=== PATIENT | female | born 2000 | race Caucasian/White ===

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

== ENCOUNTER 2021-11-15 11:46 | Emergency (ER) | payer BC, OTHER ==
[2021-11-15 12:30] VITALS: PULSE 98; TEMP 99
[2021-11-15 12:51] LABS: Appearance,Urine Clear (Clear); Bilirubin,Urine Negative (Negative); Blood,Urine Negative (Negative); Color,Urine Yellow; Glucose,Urine (UA) Negative (Negative); Ketones,Urine Trace (Negative); Leukocyte Esterase,Urine Negative (Negative); Nitrite,Urine Negative (Negative); Protein,Urine Negative (Negative); Specific Gravity,Urine 1.022 (1.001-1.035); Urobilinogen,Urine <2.0 mg/dL (<2.0)
[2021-11-15 14:02] VITALS: BP 119/79; RESP 12
--- NOTE | 2021-11-15 15:26 | US ---
EXAMINATION TYPE: US transvaginal DATE OF EXAM: 11/15/2021 COMPARISON: NONE CLINICAL HISTORY: abd pain. Pain. Patient had IUD placed in February 2021. G0. TECHNIQUE: Transvaginal (TV). Date of LMP: February 2021, pt had IUD placed that month. EXAM MEASUREMENTS: Uterus: 6.4 x 3.8 x 2.4 cm Endometrial Stripe: 0.34 cm Right Ovary: 3.6 x 2.6 x 2.3 cm Left Ovary: 3.7 x 2.7 x 2.3 cm 1. Uterus: Anteverted IUD appears to be in upper endometrium. Anechoic, fluid-appearing area in ce rvix: 1.6 x 0.2 x 0.1 cm. Hyperechoic focus seen: 0.2 x 0.1 x 0.2, which may be a nonspecific calcifi cation 2. Endometrium: Measures 0.34 cm. 3. Right Ovary: Follicles/septated anechoic areas seen. 4. Left Ovary: Follicles/septated anechoic areas seen. Echogenic area visualized measurin.0 x 0. 6 x 0.8, which may represent normal ovarian tissue Spectral, color and waveform doppler imaging shows arterial and venous flow within the ovaries. 5. Bilateral Adnexa: Free fluid seen in right adnexa: 0.8 x 2.1 x 0.7 cm. 6. Posterior cul-de-sac: Appears wnl IMPRESSION: 1. No evidence of ovarian torsion. 2. Intrauterine device is present and appears in satisfactory position. 3. Nonspecific trace fluid within the endocervical canal and within the right pelvis.
--- NOTE | 2021-11-15 15:53 | ED ---
Abdominal Pain HPI - General Chief Complaint: Abdominal Pain Stated Complaint: Abd pain Time Seen by Provider: 11/15/21 12:30 Source: patient Mode of arrival: ambulatory Limitations: no limitations - History of Present Illness Initial Comments: 21-year-old female with no past medical history presents emergency department for nausea and abdominal pain. States that she woke this morning with lower pelvic pain on the left and right lower quadrants. She took some Tylenol at home with some improvement in her symptoms. Pain was so severe that it caused her to be nauseated. Denies vomiting. Denies dysuria, hematuria or did the voiding. Denies any abnormal vaginal discharge or concern for sexually transmitted infection. Does have an intrauterine device. Had some mild spotting 2 days ago. Reports that she has not had a menstrual cycle since before the IUD was placed. No melanic stools or hematochezia. Does admit to 2 episodes of loose stools. No fevers. No other alleviating, precipitating or modifying factors - Related Data Home Medications Medication Instructions Recorded Confirmed Levonorgestrel [Kyleena (IUD)] 1 implant VAGINAL [id number] 11/15/21 11/15/21 Allergies Allergy/AdvReac Type Severity Reaction Status Date / Time No Known Allergies Allergy Verified 11/15/21 14:13 Review of Systems ROS Statement: Those systems with pertinent positive or pertinent negative responses have been documented in the HPI. ROS Other: All systems not noted in ROS Statement are negative. Past Medical History Past Medical History: No Reported History History of Any Multi-Drug Resistant Organisms: None Reported Past Surgical History: No Surgical Hx Reported Past Psychological History: No Psychological Hx Reported Smoking Status: Never smoker Past Alcohol Use History: None Reported Past Drug Use History: None Reported General Exam Limitations: no limitations General appearance: alert, in no apparent distress Head exam: Present: atraumatic, normocephalic, normal inspection Eye exam: Present: normal appearance, PERRL, EOMI. Absent: scleral icterus, conjunctival injection, periorbital swelling ENT exam: Present: normal exam, mucous membranes moist Neck exam: Present: normal inspection. Absent: tenderness, meningismus, lymphadenopathy Respiratory exam: Present: normal lung sounds bilaterally. Absent: respiratory distress, wheezes, rales, rhonchi, stridor Cardiovascular Exam: Present: regular rate, normal rhythm, normal heart sounds. Absent: systolic murmur, diastolic murmur, rubs, gallop, clicks GI/Abdominal exam: Present: soft, tenderness (b/l lower pelvic regions), normal bowel sounds. Absent: distended, guarding, rebound, rigid Extremities exam: Present: normal inspection, full ROM, normal capillary refill. Absent: tenderness, pedal edema, joint swelling, calf tenderness Back exam: Present: normal inspection Neurological exam: Present: alert, oriented X3, CN II-XII intact Psychiatric exam: Present: normal affect, normal mood Skin exam: Present: warm, dry, intact, normal color. Absent: rash Course Vital Signs 11/15/21 11/15/21 12:27 14:00 Temperature 99 F Pulse Rate 98 98 Respiratory 16 12 Rate Blood Pressure 150/88 119/79 O2 Sat by Pulse 96 99 Oximetry Medical Decision Making - Medical Decision Making Arrival patient was placed into hallway 10. A thorough history and physical exam was performed. She does provide a urine sample which has trace ketones. HCG is not detected. Ultrasound is performed which demonstrates a trace amount of fluid in the right lower quadrant. Patient does have more pain on the left side. No evidence of ovarian torsion. Intrauterine device is present and appears in satisfactory position. Also discussed with the patient. Will be discharged home at this time to follow up with primary care in 2-4 days. Alternate Motrin and Tylenol for pain and return for any worsening symptoms. Patient agreed treatment plan was discharged in stable condition - Lab Data Lab Results 11/15/21 11/15/21 Range/Units 12:37 12:37 Urine Color Yellow Urine Appearance Clear (Clear) Urine pH 8.0 (5.0-8.0) Ur Specific [place] 1.022 (1.001-1.035) Urine Protein Negative (Negative) Urine Glucose (UA) Negative (Negative) Urine Ketones Trace H (Negative) Urine Blood Negative (Negative) Urine Nitrite Negative (Negative) Urine Bilirubin Negative (Negative) Urine Urobilinogen <2.0 (<2.0) mg/dL Ur Leukocyte Esterase Negative (Negative) Urine HCG, Qual Not Detected (Not Detectd) Disposition Clinical Impression: Pelvic pain Disposition: HOME SELF-CARE Condition: Stable Instructions (If sedation given, give patient instructions): Pelvic Pain in Women (ED) Additional Instructions: Please alternate taking Motrin and Tylenol for pain control. Return to the emergency room for any new or worsening symptoms. Follow-up with your doctor in 2-4 days. Is patient prescribed a controlled substance at d/c from ED?: No Referrals: Mervat Hogan MD [Primary Care Provider] - 1-2 days Time of Disposition: 15:53
== END 2021-11-15 16:01 | disposition home or self-care (01) ==
LOC: EC 11:46
DX: R10.2 Pelvic and perineal pain (principal)
CPT/HCPCS: 76830; 81003; 81025; 93975; 99284